=== PATIENT | female | born 1990 | race Caucasian/White ===

== ENCOUNTER 2021-07-29 06:25 | Inpatient (IN) | payer MEDICAID, OTHER ==
[2021-07-29] MEDS ORDERED: Butorphanol 1 MG/ML SDV IVPUSH PRN (06:46)
[2021-07-29] MEDS ORDERED: Misoprostol 200 MCG Tab PO PRN (06:46)
[2021-07-29] MEDS ORDERED: Sodium Chloride 0.9% 20 ML SDV IV PRN (06:46)
[2021-07-29] MEDS ORDERED: Tranexamic Acid 1,000 MG in Sodium Chloride 0.9% 100 ML IV PRN (06:46)
[2021-07-29] MEDS ORDERED: Methylergonovine 0.2 MG/1 ML Amp IM PRN (06:46)
[2021-07-29] MEDS ORDERED: Lidocaine 1% 50 ML MDV INJECT PRN (06:46)
[2021-07-29] MEDS ORDERED: Carboprost Tromethamine 250 MCG/1 ML Amp IM PRN (06:46)
[2021-07-29] MEDS ORDERED: Sodium Chloride 0.9% 10 ML Syringe FLUSH PRN (06:46)
[2021-07-29] MEDS ORDERED: Sodium Chloride 0.9% 2.5 ML Syringe FLUSH PRN (06:46)
[2021-07-29] MEDS ORDERED: Ondansetron 4 MG/2 ML SDV IVPUSH PRN (06:46)
[2021-07-29] MEDS ORDERED: Water For Irrigation,Sterile 1,000 ML Container IRR PRN (06:46)
[2021-07-29] MEDS ORDERED: Lactated Ringers 1,000 ML IV SCH (07:00)
[2021-07-29] MEDS ORDERED: Oxytocin/0.9 % Sodium Chloride 30 UNIT/500 ML BAG IV SCH ×2 (07:00→13:10)
[2021-07-29] MEDS ORDERED: Ropivacaine 100 ML ONE (07:44)
[2021-07-29 07:56] LABS: BLOOD UREA NITROGEN,BUN 8 mg/dL (7.0-18.0); CARBON DIOXIDE,CO2 20.3 mmol/L (21.0-32.0); CHLORIDE,CL 98 mmol/L (98-107); GLUCOSE RANDOM 141 mg/dL (74-106); POTASSIUM,K 3.9 mmol/L (3.5-5.1); SODIUM,NA 132 mmol/L (136-145)
[2021-07-29] MEDS ORDERED: ePHEDrine 50 MG/ML SDV IVPUSH PRN ×2 (07:59)
[2021-07-29] MEDS ORDERED: Ropivacaine 200 MG in Premix Bag 1 BAG EPIDUR SCH (08:00)
[2021-07-29] MEDS ORDERED: Diphtheria,Pertussis(Acell),Tetanus Vaccine 0.5 ML Syringe IM ONE (08:05)
[2021-07-29] MEDS ORDERED: oxyCODONE 5 MG Tab PO PRN (14:59)
[2021-07-29] MEDS ORDERED: Docusate Sodium 100 MG Cap PO PRN (14:59)
[2021-07-29] MEDS ORDERED: Acetaminophen 500 MG Tab PO PRN ×2 (14:59)
[2021-07-29] MEDS ORDERED: Ibuprofen 400 MG Tab PO PRN (14:59)
[2021-07-29] MEDS ORDERED: Lanolin 100% Cream 7 GM Tube TOP PRN (14:59)
[2021-07-29] MEDS ORDERED: Benzocaine/Menthol 20%-0.5% Spray 78 GM Cannister TOP PRN (14:59)
[2021-07-29] MEDS ORDERED: Bisacodyl 10 MG Supp RECTAL PRN (14:59)
[2021-07-29] MEDS ORDERED: Witch Hazel Medicated Pads 40/Jar TOP PRN (14:59)
[2021-07-29] MEDS: Ibuprofen 800 MG Tab PO PRN (20:34)
[2021-07-30] MEDS: Ibuprofen 800 MG Tab PO PRN (08:12)
== END 2021-07-30 14:40 | disposition home or self-care (01) | DRG 807 ==
LOC: MW.OBCHECK 06:25 → MW.OB 06:28 → MW.OBCHECK 07:14 → OBSVTOIN 14:59 → MW.OB 17:57
PROVIDERS: ADMIT Obstetrics & Gynecology; ATTEND Obstetrics & Gynecology
PROC: 10E0XZZ Delivery of Products of Conception, External Approach (ICD-10-PCS; principal; 2021-07-29)
PROC: 3E0R3BZ Introduction of Anesthetic Agent into Spinal Canal, Percutaneous Approach (ICD-10-PCS; 2021-07-29)
PROC: 00HU33Z Insertion of Infusion Device into Spinal Canal, Percutaneous Approach (ICD-10-PCS; 2021-07-29)
DX: O99.334 Smoking (tobacco) complicating childbirth (principal); Z37.0 Single live birth; F17.210 Nicotine dependence, cigarettes, uncomplicated; O99.324 Drug use complicating childbirth; Z20.822 Contact with and (suspected) exposure to COVID-19; F15.10 Other stimulant abuse, uncomplicated; F12.10 Cannabis abuse, uncomplicated; O77.0 Labor and delivery complicated by meconium in amniotic fluid; Z3A.39 39 weeks gestation of pregnancy; Z91.030 Bee allergy status; Z91.040 Latex allergy status
CPT/HCPCS: 01967; 36415; 59025; 59409; 80053; 80305-QW; 83036; 85014; 85018; 85027; 86592; 86850; 86900; 86901; 87389; 87653; A9270-GY; J2370; J2590; J2795; J7120; U0002

== ENCOUNTER 2022-10-30 08:08 | Inpatient (IN) | payer MEDICAID ==
[2022-10-30] MEDS: Lactated Ringers 1,000 ML IV SCH ×3 (08:15→12:05)
[2022-10-30] MEDS ORDERED: Lidocaine 1% 50 ML MDV INJECT PRN (08:17)
[2022-10-30] MEDS ORDERED: Water For Irrigation,Sterile 1,000 ML Container IRR PRN (08:17)
[2022-10-30] MEDS ORDERED: Sodium Chloride 0.9% 10 ML Syringe FLUSH PRN (08:17)
[2022-10-30] MEDS ORDERED: Sodium Chloride 0.9% 20 ML SDV IV PRN (08:17)
[2022-10-30] MEDS ORDERED: Butorphanol 1 MG/ML SDV IVPUSH PRN (08:17)
[2022-10-30] MEDS ORDERED: Tranexamic Acid 1,000 MG in Sodium Chloride 0.9% 100 ML IV PRN (08:17)
[2022-10-30] MEDS ORDERED: Carboprost Tromethamine 250 MCG/1 mL Vial IM PRN (08:17)
[2022-10-30] MEDS ORDERED: Misoprostol 200 MCG Tab PO PRN (08:17)
[2022-10-30] MEDS ORDERED: Sodium Chloride 0.9% 2.5 ML Syringe FLUSH PRN (08:17)
[2022-10-30] MEDS ORDERED: Ondansetron 4 MG/2 ML SDV IVPUSH PRN (08:17)
[2022-10-30] MEDS ORDERED: Methylergonovine 0.2 MG/1 ML Amp IM PRN (08:17)
[2022-10-30] MEDS ORDERED: Oxytocin/0.9 % Sodium Chloride 30 UNIT/500 ML BAG IV SCH (08:30)
[2022-10-30 08:39] LABS: HEMATOCRIT 31.8 % (36.0-46.0); HEMOGLOBIN 10.5 g/dL (12.0-16.0); MEAN CORPUSCULAR HEMOGLOBIN 30.7 pg (27.0-32.0); MEAN PLATELET VOLUME 8.9 fL (7.40-12.00); NRBC PERCENT 0.1 /100WBC; RED BLOOD CELL COUNT 3.42 M/uL (4.30-5.90); WHITE BLOOD CELL COUNT,WBC 23.54 K/uL (4.0-11.0)
[2022-10-30] MEDS ORDERED: fentaNYL 100 MCG/2 ML SDV ONE (08:48)
[2022-10-30 09:00] LABS: A/G RATIO 0.6 (0.9-1.6); ALANINE AMINOTRANSFERASE,ALT 12 IU/L (14-63); ALBUMIN 2.2 g/dL (3.4-5.0); ALKALINE PHOSPHATASE 211 U/L (46-116); ASPARTATE AMNIOTRANSFERASE,AST 12 IU/L (15-37); BILIRUBIN TOTAL 0.2 mg/dL (0.2-1.0); BLOOD UREA NITROGEN,BUN 13 mg/dL (7.0-18.0); CALCIUM 8.3 mg/dL (8.5-10.1); CARBON DIOXIDE,CO2 18.2 mmol/L (21.0-32.0); CHLORIDE,CL 106 mmol/L (98-107); CREATININE 0.6 mg/dL (0.6-1.0); GLUCOSE RANDOM 148 mg/dL (74-106); POTASSIUM,K 3.8 mmol/L (3.5-5.1); PROTEIN TOTAL,TP 5.8 g/dL (6.4-8.2); SODIUM,NA 138 mmol/L (136-145)
[2022-10-30 09:07] LABS: ESTIMATED GFR 123 mL/min (>60)
[2022-10-30 09:30] LABS: BILIRUBIN,URINE NEGATIVE (NEGATIVE); COLOR,URINE YELLOW; GLUCOSE,URINE 100 mg/dL (NEGATIVE); KETONES,URINE TRACE mg/dL (NEGATIVE); LEUKOCYTE ESTERASE,URINE SMALL (NEGATIVE); NITRITE,URINE POSITIVE (NEGATIVE); OCCULT BLOOD,URINE LARGE (NEGATIVE); PROTEIN,URINE 100 mg/dL (NEGATIVE); UROBILINOGEN,URINE 0.2 EU/dL (<2.0)
[2022-10-30 09:38] LABS: AMPHETAMINES SCREEN, URINE PRESUMPTIVE POSITIVE (CUTOFF=500); BARBITURATE SCREEN,URINE NEGATIVE (CUTOFF=200); BENZODIAZEPINES SCREEN,URINE NEGATIVE (CUTOFF=150); BUPRENORPHINE SCREEN,URINE NEGATIVE (CUTOFF=10); METHADONE SCREEN, URINE NEGATIVE (CUTOFF=200); METHAMPHETAMINES SCREEN, URINE PRESUMPTIVE POSITIVE (CUTOFF=500); OXYCODONE SCREEN,URINE NEGATIVE (CUT0FF=100); PCP SCREEN,URINE NEGATIVE (CUTOFF=25); PROPOXYPHENE SCREEN,URINE NEGATIVE (CUTOFF=300); THC SCREEN,URINE 20 NG/ML PRESUMPTIVE POSITIVE (CUTOFF=50)
[2022-10-30 09:41] LABS: APPEARANCE,URINE CLOUDY
[2022-10-30 09:42] LABS: BACTERIA,URINE MODERATE (NEGATIVE); EPITHELIAL CELLS,URINE FEW (NONE-FEW)
[2022-10-30] MEDS ORDERED: ceFAZolin 2 GM in Sodium Chloride 0.9% 50 ML IV ONE (09:54)
[2022-10-30] MEDS ORDERED: Phenylephrine HCl 0.5 MG/5 ML AMP IVPUSH PRN (10:06)
[2022-10-30] MEDS ORDERED: ePHEDrine 50 MG/ML SDV IVPUSH PRN ×2 (10:06)
[2022-10-30 10:09] LABS: C. TRACHOMATIS BY PCR NOT DETECTED; N. GONORRHOEAE BY PCR NOT DETECTED
[2022-10-30] MEDS ORDERED: Propofol 200 MG/20 ML SDV ONE (10:26)
[2022-10-30] MEDS ORDERED: Oxytocin 10 Units/1 ML SDV ONE (10:32)
[2022-10-30] MEDS ORDERED: Poractant Alfa 120 MG/1.5 ML SDV ONE (11:15)
[2022-10-30] MEDS ORDERED: Benzocaine/Menthol 20%-0.5% Spray 78 GM Cannister TOP PRN (11:22)
[2022-10-30] MEDS ORDERED: Lanolin 100% Cream 7 GM Tube TOP PRN (11:22)
[2022-10-30] MEDS ORDERED: oxyCODONE 5 MG Tab PO PRN (11:22)
[2022-10-30] MEDS ORDERED: Ibuprofen 400 MG Tab PO PRN (11:22)
[2022-10-30] MEDS ORDERED: Docusate Sodium 100 MG Cap PO PRN (11:22)
[2022-10-30] MEDS ORDERED: Bisacodyl 10 MG Supp RECTAL PRN (11:22)
[2022-10-30] MEDS ORDERED: Ibuprofen 800 MG Tab PO PRN (11:22)
[2022-10-30] MEDS ORDERED: Witch Hazel Medicated Pads 40/Jar TOP PRN (11:22)
[2022-10-30] MEDS ORDERED: Acetaminophen 500 MG Tab PO PRN ×2 (11:22)
[2022-10-30 11:27] LABS: PH,UMBILICAL ARTERIAL 7.083 (7.18-7.38)
[2022-10-30 11:34] LABS: PH,UMBILICAL VENOUS 7.238 (7.25-7.45)
[2022-10-30] MEDS ORDERED: hydrOXYzine Pamoate 25 MG Cap PO PRN (12:11)
[2022-10-30] MEDS ORDERED: LORazepam 2 MG/ML SDV IVPUSH PRN (12:14)
[2022-10-30] MEDS ORDERED: Clindamycin Phosphate in D5W 900 MG in Premix Bag 1 BAG IV SCH ×2 (14:00)
[2022-10-30] MEDS ORDERED: ceFAZolin 2 GM in Sodium Chloride 0.9% 50 ML IV SCH (20:00)
[2022-10-31 04:10] LABS: GROUP B STREP BY PCR NEGATIVE (NEGATIVE)
== END 2022-10-30 20:45 | disposition left against medical advice (07) | DRG 806 ==
LOC: MW.OBCHECK 08:08 → MW.OB 08:09 → OBSVTOIN 10:27 → MW.OBCHECK 10:34 → MW.OB 15:46
PROVIDERS: ADMIT Obstetrics & Gynecology; ATTEND Obstetrics & Gynecology
PROC: 10E0XZZ Delivery of Products of Conception, External Approach (ICD-10-PCS; principal; 2022-10-30)
DX: O99.324 Drug use complicating childbirth (principal); O72.1 Other immediate postpartum hemorrhage; Z37.0 Single live birth; Z3A.36 36 weeks gestation of pregnancy; F15.90 Other stimulant use, unspecified, uncomplicated; Z88.8 Allergy status to other drugs, medicaments and biological substances; Z91.030 Bee allergy status; Z91.040 Latex allergy status; O99.334 Smoking (tobacco) complicating childbirth; F17.210 Nicotine dependence, cigarettes, uncomplicated; O77.0 Labor and delivery complicated by meconium in amniotic fluid; O69.81X0 Labor and delivery complicated by cord around neck, without compression, not applicable or unspecified
CPT/HCPCS: 36415; 59409; 62320; 80053; 80305-QW; 81001; 82803; 85027; 86592; 86762; 86803; 86850; 86900; 86901; 87086; 87088; 87186; 87340; 87389; 87491; 87591; 87653; J0690; J2060; J2590; J2704; J3010; J3490; J7120

== ENCOUNTER 2023-10-30 02:02 | Inpatient (IN) | payer MEDICAID ==
[2023-10-30] MEDS: Oxytocin/0.9 % Sodium Chloride 30 UNIT/500 ML BAG IV SCH (02:05)
[2023-10-30] MEDS ORDERED: Butorphanol 2 MG/ML SDV IVPUSH PRN (02:28)
[2023-10-30] MEDS ORDERED: Methylergonovine 0.2 MG/1 ML Amp IM PRN (02:28)
[2023-10-30] MEDS ORDERED: Misoprostol 200 MCG Tab PO PRN (02:28)
[2023-10-30] MEDS ORDERED: Carboprost Tromethamine 250 MCG/1 mL Vial IM PRN (02:28)
[2023-10-30] MEDS ORDERED: Lidocaine 1% 50 ML MDV INJECT PRN (02:28)
[2023-10-30] MEDS ORDERED: Sodium Chloride 0.9% 20 ML SDV IV PRN (02:28)
[2023-10-30] MEDS ORDERED: Tranexamic Acid IN NACL,ISO-OS 1,000 MG in Premix Bag 1 BAG IV PRN (02:28)
[2023-10-30] MEDS ORDERED: Water For Irrigation,Sterile 1,000 ML Container IRR PRN (02:28)
[2023-10-30] MEDS ORDERED: Sodium Chloride 0.9% 10 ML Syringe FLUSH PRN (02:28)
[2023-10-30] MEDS ORDERED: Lactated Ringers 1,000 ML IV SCH (02:30)
[2023-10-30] MEDS ORDERED: Dextrose 10% in Water 500 ML ONE (02:44)
[2023-10-30] MEDS ORDERED: Benzocaine/Menthol 20%-0.5% Spray 78 GM Cannister TOP PRN (02:55)
[2023-10-30] MEDS ORDERED: oxyCODONE 5 MG Tab PO PRN (02:55)
[2023-10-30] MEDS ORDERED: Acetaminophen 500 MG Tab PO PRN (02:55)
[2023-10-30] MEDS ORDERED: Ibuprofen 800 MG Tab PO PRN (02:55)
[2023-10-30] MEDS ORDERED: Docusate Sodium 100 MG Cap PO PRN (02:55)
[2023-10-30] MEDS ORDERED: Lanolin 100% Cream 7 GM Tube TOP PRN (02:55)
[2023-10-30] MEDS ORDERED: Witch Hazel Medicated Pads 40/Jar TOP PRN (02:55)
[2023-10-30 03:33] LABS: HEMATOCRIT 30.1 % (37.0-47.0); HEMOGLOBIN 9.7 g/dL (12.0-16.0); MEAN CORPUSCULAR HEMOGLOBIN 28.8 pg (28.0-32.0); MEAN CORPUSCULAR HGB CONC 32.2 g/dL (32.0-36.0); MEAN CORPUSCULAR VOLUME 89.3 fL (83.0-99.0); MEAN PLATELET VOLUME 9.2 fL (9.4-12.3); PLATELET COUNT,PLT 274 K/uL (150-400); RED BLOOD CELL COUNT 3.37 M/uL (4.10-5.30); WHITE BLOOD CELL COUNT,WBC 18.34 K/uL (3.9-11.3)
[2023-10-30 05:17] LABS: C. TRACHOMATIS BY PCR NOT DETECTED; N. GONORRHOEAE BY PCR NOT DETECTED
[2023-10-30 22:42] LABS: GROUP B STREP BY PCR NEGATIVE (NEGATIVE)
== END 2023-10-30 09:37 | disposition left against medical advice (07) | DRG 776 ==
LOC: MW.OB 02:02
PROVIDERS: ADMIT Obstetrics & Gynecology; ATTEND Obstetrics & Gynecology
PROC: 10E0XZZ Delivery of Products of Conception, External Approach (ICD-10-PCS; principal; 2023-10-30)
PROC: 3E033VJ Introduction of Other Hormone into Peripheral Vein, Percutaneous Approach (ICD-10-PCS; 2023-10-30)
DX: Z39.0 Encounter for care and examination of mother immediately after delivery (principal)
CPT/HCPCS: 36415; 59414; 85027; 86592; 86762; 86803; 86850; 86900; 86901; 86920; 87340; 87389; 87491; 87591; 87653; J2590

== ENCOUNTER 2024-06-20 08:53 | Emergency (ER) | payer MEDICAID | END 2024-06-20 11:41 | disposition home or self-care (01) | LOC: MW.ED 08:53 | DX: S06.0X0A Concussion without loss of consciousness, initial encounter (principal); S02.2XXA Fracture of nasal bones, initial encounter for closed fracture; S00.03XA Contusion of scalp, initial encounter; F17.210 Nicotine dependence, cigarettes, uncomplicated; Z91.030 Bee allergy status; Z91.040 Latex allergy status; Z91.048 Other nonmedicinal substance allergy status; Z88.8 Allergy status to other drugs, medicaments and biological substances; Z79.899 Other long term (current) drug therapy; Z86.16 Personal history of COVID-19; W22.8XXA Striking against or struck by other objects, initial encounter; X50.1XXA Overexertion from prolonged static or awkward postures, initial encounter | CPT/HCPCS: 70450; 70450-26; 70486; 70486-26; 72125; 72125-26; 99284 ==